=== PATIENT | male | born 1970 | race African-American/Black ===

== ENCOUNTER 2017-07-07 20:32 | Emergency (ER) | payer BC ==
[~2017-07-07] VITALS: Ht 185.4 cm; Wt 104.3 kg
[2017-07-07 20:36] VITALS: BP 139/75
== END 2017-07-07 20:58 | disposition home or self-care (01) ==
LOC: ER 20:32
DX: S19.9XXA Unspecified injury of neck, initial encounter (principal); V43.52XA Car driver injured in collision with other type car in traffic accident, initial encounter; Y93.89 Activity, other specified; Y92.89 Other specified places as the place of occurrence of the external cause; Y99.9 Unspecified external cause status
CPT/HCPCS: 99282; A4606; Z7610